=== PATIENT | male | born 1970 | race Caucasian/White ===

== ENCOUNTER 2024-09-28 20:57 | Emergency (ER) | payer BC, OTHER ==
[~2024-09-28] VITALS: Ht 177.8 cm; Wt 83.9 kg
[~2024-09-28 20:57] MED LIST: BUSPIRONE HCL7.5 MG PO; MULTIVITAMINS1 EAC7 PO; PANTOPRAZOLE SO40 MG PO; PRILOSEC OTC20 MG PO; PRINIVIL10 MG PO; ZOLOFT50 MG PO
[2024-09-28 21:30] VITALS: TEMP 98.8
[2024-09-28] MEDS ORDERED: SODIUM CHLORIDE FLUSH 10 ML SYR IV PRN (21:45)
[2024-09-28 21:59] LABS: BASOPHILS # (AUTO) 0.1 (0.0-0.1); BASOPHILS % 0.8 % (0.0-1.0); EOSINOPHILS # (AUTO) 0.1 (0.0-0.4); EOSINOPHILS % 1.4 % (0.0-6.0); HEMOGLOBIN 13.9 g/dL (14.0-18.0); LYMPHOCYTES # (AUTO) 1.3 (1.0-3.2); LYMPHOCYTES % 19.4 % (18.0-39.1); MEAN CORPUSCULAR HGB CONC 33.9 g/dL (31-35); MEAN CORPUSCULAR VOLUME 85.6 fL (81-99); MONOCYTES # (AUTO) 0.4 (0.2-0.8); MONOCYTES % 5.9 % (4.4-11.3); NEUTROPHILS # (AUTO) 4.8 (2.1-6.9); NEUTROPHILS % 72.2 % (38.7-80.0); PLATELET COUNT 201 x10e3/uL (140-360); RED BLOOD COUNT 4.79 x10e6/uL (4.3-5.7); RED CELL DISTRIBUTION WIDTH 13.4 % (11.7-14.4); WHITE BLOOD COUNT 6.64 x10e3/uL (4.8-10.8)
[2024-09-28 22:17] LABS: ALANINE AMINOTRANSFERASE 39 IU/L (0-55); ALBUMIN 4.3 g/dL (3.5-5.0); ALBUMIN/GLOBULIN RATIO 1.4 (0.8-2.0); ALKALINE PHOSPHATASE 60 IU/L (40-150); ANION GAP 13.9 mmol/L (8-16); BILIRUBIN,TOTAL 0.5 mg/dL (0.2-1.2); BLOOD UREA NITROGEN 14 mg/dL (7-26); BUN/CREATININE RATIO 13 (6-25); CARBON DIOXIDE 23 mmol/L (22-29); CHLORIDE 108 mmol/L (98-107); EST GLOMERULAR FILTRATION RATE 79 ML/MIN (>=60); GLUCOSE 116 mg/dL (74-118); POTASSIUM 3.9 mmol/L (3.5-5.1); SODIUM 141 mmol/L (136-145); TOTAL PROTEIN 7.4 g/dL (6.5-8.1)
[2024-09-28 22:40] VITALS: BP 154/101
[2024-09-28] MEDS: HYDRALAZINE HCL 20 MG/ML VIAL IV STA (22:40)
[2024-09-28 22:42] LABS: TROPONIN I < 0.05 ng/mL (0.0-0.40)
[2024-09-29 00:47] VITALS: PULSE 66; RESP 18; O2SAT 96
[2024-09-29] MEDS ORDERED: CLONIDINE HCL0.1 MG PO (00:49)
== END 2024-09-29 01:00 | disposition home or self-care (01) ==
LOC: ER 22:16
DX: I16.0 Hypertensive urgency (principal); I10 Essential (primary) hypertension; F41.9 Anxiety disorder, unspecified
CPT/HCPCS: 36415; 70450; 80053; 84484; 85025; 93005; 94760; 99284; J0360